=== PATIENT | female | born 1975 | race Caucasian/White ===

== ENCOUNTER 2016-08-31 23:07 | Emergency (ER) | payer MEDICAID ==
[2016-08-31 23:14] VITALS: TEMP 97.9
[2016-08-31] MEDS ORDERED: LORazepam 1 MG TAB ONE (23:15)
[2016-08-31] MEDS ORDERED: LORazepam 1 MG TAB PO ONE (23:17)
--- NOTE | 2016-08-31 23:42 | EDPHY ---
H & P Stated Complaint: anxiety since this morning Time Seen by Provider: 08/31/16 23:08 HPI/ROS: HPI The patient presents with anxiety which began this morning and has been constant since it started. She is brought in by ambulance from [facility] where she walked in because of a panic attack. Her last 1 was about 1 week ago. She says she is feeling her heart racing, feels stressed. She is not sure was brought this on. She takes lithium, trazodone, Risperdal for about 10 years. These are prescribed by [facility] for bipolar disorder. She says benzodiazepines are the only thing that helps her. She denies any suicidal or homicidal thoughts. She is not having any auditory or visual hallucinations.. REVIEW OF SYSTEMS Constitutional: No fever, no chills. Eyes: No discharge. ENT: No sore throat. Cardiovascular: No chest pain, no palpitations. Respiratory: No cough, no shortness of breath. Gastrointestinal: No abdominal pain, no vomiting. Genitourinary: No hematuria. Musculoskeletal: No back pain. Skin: No rashes. Neurological: No headache. PMHx: Bipolar disorder, with self-reported history of anxiety Soc Hx: Lives with her father in [place]. 1/2 pack per day cigarette smoker, denies alcohol use, opiate pain medication abuse PHYSICAL General Appearance: Alert, anxious appearing Eyes: Pupils equal and round no pallor or injection ENT, Mouth: Mucous membranes moist Respiratory: There are no retractions, lungs are clear to auscultation Cardiovascular: Regular rate and rhythm Gastrointestinal: Abdomen is soft and non-tender, no masses, bowel sounds normal Neurological: A&O, moves all extremities Skin: Warm and dry, no rashes Musculoskeletal: Neck is supple non tender Extremities: symmetrical, full range of motion Psychiatric: Patient is oriented X 3, there is no agitation Source: Patient, EMS - Personal History LMP (Females 10-55): 15-21 Days Ago Current Tetanus/Diphtheria Vaccine: Yes Current Tetanus Diphtheria and Acellular Pertussis (TDAP): Yes - Medical/Surgical History Hx Asthma: No Hx Chronic Respiratory Disease: No Hx Diabetes: No Hx Cardiac Disease: No Hx Renal Disease: No Hx Cirrhosis: No Hx Alcoholism: No Hx HIV/AIDS: No Hx Splenectomy or Spleen Trauma: No Other PMH: bipolar, depession - Social History Smoking Status: Former smoker Constitutional: Initial Vital Signs Temperature (C) 36.6 C 08/31/16 23:12 Heart Rate 84 08/31/16 23:12 Respiratory Rate 18 08/31/16 23:12 Blood Pressure 121/90 H 08/31/16 23:12 O2 Sat (%) 100 08/31/16 23:12 O2 Delivery Mode Room Air Allergies/Adverse Reactions: No Known Allergies Allergy (Unverified 08/31/16 23:11) Home Medications: Medication Instructions Recorded [place] Carbonate 08/31/16 Risperidone 08/31/16 traZODone 08/31/16 Medical Decision Making Differential Diagnosis: This is a 40-year-old female who reports history of bipolar disorder and panic disorder who presents brought in by ambulance from the [facility] for a panic attack which has been present since this morning. She is asking for benzodiazepines. She denies any suicidal or homicidal ideations. She denies any other complaints. Differential diagnosis includes anxiety attack , alcohol withdrawal, polysubstance abuse. I have looked her up in the PDMP and she does not have any prescriptions for benzodiazepines or opiates, she has a prescription for Suboxone from earlier this year. I will give her a single dose of Ativan here and will discharge her. She is to follow up with [facility] tomorrow to get refills of her usual medications. I will not give her prescription for benzodiazepines given she is at high risk for addiction given her history of opiate medication abuse. - Data Points Medications Given: Discontinued Medications Lorazepam (Ativan) 1 mg PO EDNOW ONE Stop: 08/31/16 23:18 Last Admin: 08/31/16 23:17 Dose: 1 mg Departure - Departure Disposition: Home, Routine, Self-Care Clinical Impression: Anxiety attack Condition: Good Instructions: Anxiety (ED) Additional Instructions: Please return to the emergency room if your worse in any way. Referrals: Yael Martino PA [Primary Care Provider] - As per Instructions
[2016-09-01 00:02] VITALS: BP 118/75; PULSE 81; RESP 16; O2SAT 97
== END 2016-09-01 00:02 | disposition home or self-care (01) ==
LOC: EDUNIT#
DX: F41.9 Anxiety disorder, unspecified (principal); F17.210 Nicotine dependence, cigarettes, uncomplicated
CPT/HCPCS: J1200